=== PATIENT | female | born 1970 | race Two or more races ===

== ENCOUNTER 2020-05-16 22:03 | Emergency (ER) | payer OTHER ==
[~2020-05-16] VITALS: Ht 165.1 cm; Wt 68.9 kg
--- NOTE | 2020-05-16 22:11 | NUR ---
PT AAOX4. BIBSELF C/O HEADACHE, HIGH BP AT HOME. PT PLACED ON MONITOR AND PULSE OX. IV LINE INITIATED RAC 20G,BLOOD DRAWN, SENT TO LAB.
[2020-05-16] MEDS ORDERED: METOCLOPRAMIDE HCL 10 MG/2 ML VIAL ONE (22:23)
[2020-05-16] MEDS ORDERED: KETOROLAC TROMETHAMINE 15 MG/ML VIAL ONE (22:23)
[2020-05-16] MEDS ORDERED: diphenhydrAMINE HCL 50 MG/ML VIAL ONE (22:23)
[2020-05-16] MEDS ORDERED: METOCLOPRAMIDE HCL 10 MG/2 ML VIAL IV ONE (22:30)
[2020-05-16] MEDS ORDERED: KETOROLAC TROMETHAMINE INJ 30 MG/ML VIAL IV ONE (22:30)
[2020-05-16] MEDS ORDERED: diphenhydrAMINE HCL 50 MG/ML VIAL IV ONE (22:30)
[2020-05-16 22:45] LABS: CARBON DIOXIDE 30 mmol/L (21-32); CHLORIDE 103 mmol/L (98-107); CREATININE 0.7 mg/dL (0.6-1.3); GLUCOSE 126 mg/dL (74-106); POTASSIUM 3.8 mmol/L (3.5-5.1); SODIUM SERUM 143 mmol/L (136-145); UREA NITROGEN, BLOOD 10 mg/dL (7-18)
--- NOTE | 2020-05-16 22:48 | NUR ---
PT ASKED FOR THE IV TO BE REMOVED. IV WAS REMOVED. PT THEN AMBULATED OUT OF THE E.D. PT STATED SHE FELT ANXIOUS.
--- NOTE | 2020-05-16 23:12 | NUR ---
PT CAME BACK TO THE E.Mony.
--- NOTE | 2020-05-16 23:29 | NUR ---
Patient discharged to home in stable condition. Written and verbal after care instructions given. Patient verbalizes understanding of instruction. Pt denies Headache. vss.
[2020-05-16 23:30] VITALS: BP 132/72
== END 2020-05-16 23:30 | disposition home or self-care (01) ==
LOC: ER 22:05
DX: I10 Essential (primary) hypertension (principal); R51.9 Headache, unspecified
CPT/HCPCS: 36415; 80048; 84484; 96374; 96375; 99284; J1200; J1885; J2765